=== PATIENT | female | born 1990 | race Caucasian/White ===

== ENCOUNTER → 2021-03-18 | Outpatient (CLI) | payer OTHER ==
[~2021-03-18] VITALS: Ht 160 cm; Wt 86.2 kg
[~2021-03-18] MED LIST: REMICADE 1100 MG/VIA IV; TOPAMAX100 MG PO; TYLENOL325 M1 PO
--- NOTE | 2021-03-19 15:08 | PATH ---
[facility] [address] [place] [address] PATHOLOGY RPT PROCEDURE Name: CHEYANNE RODRIGUEZ Room #: REG KENNY Chavez.#: [id number] Admission: 03/18/21 Date of : 89 Discharge: Report #: [id number] Path Case #: [id number] [facility] Accession Number: [id number] . 01 Material submitted: . PART A: duodenum - DUODENAL BIOPSY RULE OUT SPRUE/IBB PART B: small intestine - TERMINAL ILEUM. Modifiers: ILEUM . 01 Clinical history: . COLONOSCOPY DIARRHEA, BLOATING DT/ EGD/ COLONOSCOPY/ DIARRHEA, BELCHING, BLOATING, PAIN . 02 Diagnosis: A. Small bowel mucosa, duodenum R/O sprue, endoscopic biopsy: - No diagnostic abnormalities present. - Negative for villous blunting or increase in intraepithelial lymphocytes. . B. Small bowel mucosa, terminal ileum, endoscopic biopsy: - No diagnostic abnormalities present. - Negative for villous blunting or increase in intraepithelial lymphocytes. (IUV:juan carlos; 03/19/2021) QMS 03/19/2021 1304 Local . 02 Electronically signed: . Amber Joseph MD, Pathologist NPI- [id number] . 01 Gross description: . A. The specimen is received in formalin, labeled "Rodriguez, Cheyanne, Duodenal Bx" and consists of multiple newsome soft irregular tissues aggregating 0.8 x 0.7 x 0.2 cm which are submitted in in toto in A1. . B. The specimen is received in formalin, labeled "Rodriguez, Cheyanne, terminal ileum Bx" and consists of multiple newsome soft irregular tissues aggregating 0.8 x 0.7 x 0.1 cm which are submitted in toto in B1.([place]; 03/18/2021) DKA/DKA 03/19/2021 1302 Local . 02 Pathologist provided ICD-10: R19.7, R14.0 . 02 CPT . 237922, [id number] Specimen Comment: A courtesy copy of this report has been sent to [phone] [place] [address] PATHOLOGY RPT PROCEDURE Name: CHEYANNE RODRIGUEZ AMBROSIO Room #: REG KENNY Weaver#: [id number] Admission: 03/18/21 Date of : 89 Discharge: Report #: [id number] Path Case #: [id number] Specimen Comment: Report sent to Performed at: [address] [facility], [place], [place] [id number] MD Song Kincaid MD Phone: [phone] Performed at: [address] [id number] MD Amber Joseph MD Phone: [phone]
== END | disposition home or self-care (01) ==
LOC: GI 07:46
PROVIDERS: ATTEND Internal Medicine Gastroenterology
DX: K52.9 Noninfective gastroenteritis and colitis, unspecified (principal); R10.84 Generalized abdominal pain; K21.9 Gastro-esophageal reflux disease without esophagitis; F32.9 Major depressive disorder, single episode, unspecified; F41.9 Anxiety disorder, unspecified; D64.9 Anemia, unspecified; R14.0 Abdominal distension (gaseous); Z98.890 Other specified postprocedural states; Z98.84 Bariatric surgery status; Z79.899 Other long term (current) drug therapy; Z88.8 Allergy status to other drugs, medicaments and biological substances